=== PATIENT | female | born 1990 | race American Indian/Alaskan Native ===

== ENCOUNTER 2017-01-24 23:36 | Emergency (ER) | payer MEDICAID, OTHER ==
[2017-01-25] MEDS ORDERED: MOTRIN PO ONE ×2 (03:05→03:21)
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
[2017-01-25] MEDS ORDERED: PERCOCET 5/325 PO ONE (03:59)
[2017-01-25] MEDS ORDERED: ZOFRAN ODT PO ONE (03:59)
[2017-01-25 05:49] VITALS: BP 106/65
== END 2017-01-25 06:44 | disposition other institution (70) ==
LOC: ED 23:36
DX: M79.1 Myalgia (principal); S52.501A Unspecified fracture of the lower end of right radius, initial encounter for closed fracture; V49.59XA Passenger injured in collision with other motor vehicles in traffic accident, initial encounter; Y93.9 Activity, unspecified; Y92.9 Unspecified place or not applicable; Y99.9 Unspecified external cause status; Z87.891 Personal history of nicotine dependence
CPT/HCPCS: Q0162